=== PATIENT | male | born 1950 | race Caucasian/White ===

== ENCOUNTER 2016-10-28 17:33 | Emergency (ER) | payer SELFPAY ==
[~2016-10-28] VITALS: Ht 182.9 cm; Wt 76.3 kg
[2016-10-28 18:10] LABS: HEMOGLOBIN 17.1 g/dL (13.7-18.0)
[2016-10-28 18:22] LABS: BLOOD UREA NITROGEN 12 mg/dL (7-18)
[2016-10-28] MEDS ORDERED: IBUP200T48 PO (18:38)
[2016-10-28 19:59] VITALS: BP 119/87
== END 2016-10-28 20:19 | disposition home or self-care (01) ==
LOC: ED 20:13
DX: N30.01 Acute cystitis with hematuria (principal)
CPT/HCPCS: 36415; 80048; 81001; 82040; 85025; 87077; 87086; 87186; 99284

== ENCOUNTER 2019-01-11 09:37 | Outpatient (CLI) | payer MEDICARE, MEDICAID ==
[~2019-01-11 09:37] MED LIST: FUROSEMIDE 20 MG/2 ML ONE; IBUP200T49 PO
== END 2019-01-11 23:59 | disposition home or self-care (01) ==
LOC: PETCFH 09:37
PROVIDERS: ATTEND Student in an Organized Health Care Education/Training Program
DX: C67.9 Malignant neoplasm of bladder, unspecified (principal)
CPT/HCPCS: 78708; A9562; J1940